=== PATIENT | female | born 1995 | race Caucasian/White ===

== ENCOUNTER 2016-08-23 15:30 | Emergency (ER) | payer BC, OTHER ==
[~2016-08-23] VITALS: Ht 160 cm; Wt 62.9 kg
[2016-08-23 15:37] VITALS: TEMP 37.9; Ht 160 cm; Wt 62.9 kg
[2016-08-23] MEDS ORDERED: SODIUM CHLORIDE 0.9% 1000ML 1,000 ML IV STA (15:52)
[2016-08-23] MEDS ORDERED: METR-163 PO (16:10)
[2016-08-23] MEDS ORDERED: DOXY100C76 PO (16:12)
[2016-08-23] MEDS ORDERED: ACYC-57 PO (16:13)
[2016-08-23 16:22] LABS: BASO % 0.3 %; BASO ABS # 0.03 K/uL (0-0.2); COMPLETE YES; EOS % 1.2 %; HEMATOCRIT 44.2 % (37-47); IG% 0.3 %; LYMPH % 33.7 %; MEAN CELL VOLUME 83.9 fL (80-100); MEAN CORPUSCULAR HEMOGLOBIN 26.4 pg (25-34); MEAN CORPUSCULAR HGB CONC 31.4 g/dl (32-36); MEAN PLATELET VOLUME 11.9 fL (7.4-10.4); MONO % 4.5 %; PLATELET COUNT 274 K/uL (130-400); RED BLOOD COUNT 5.27 M/uL (4.2-5.4); WHITE BLOOD COUNT 9.78 K/uL (4.8-10.8)
[2016-08-23 16:34] LABS: MANUAL MICROSCOPIC REQUIRED? NO; REVIEW REQ? NO; URINE APPEARANCE CLEAR (CLEAR); URINE BILIRUBIN NEG (NEG); URINE COLOR YELLOW; URINE NITRITE NEG (NEG); URINE PH 7.5 (4.5-7.5); URINE SPECIFIC GRAVITY 1.006 (1.000-1.030); UROBILINOGEN NEG (NEG); ZZUR CULT IF INDIC CLEAN CATCH NO
[2016-08-23 16:41] LABS: BUN/CREATININE RATIO 14.5 (10-20); CREATININE 0.84 mg/dl (0.60-1.20); POTASSIUM 3.5 mmol/L (3.5-5.1)
[2016-08-23 16:44] LABS: ALB/GLOB RATIO 1.1 (0.9-2)
[2016-08-23] MEDS ORDERED: OPTIRAY 320 IV PRN (17:00)
--- NOTE | 2016-08-23 17:20 | DIAGNOSTIC IMAGING REPORT ---
CT SCAN OF THE ABDOMEN AND PELVIS WITH IV CONTRAST CLINICAL HISTORY: Fever. Pelvic pain. COMPARISON STUDY: No priors. TECHNIQUE: Following the IV administration of 94 cc of Optiray 320, CT scan of the abdomen and pelvis is performed from the lung bases to the proximal femora. Images are reviewed in the axial, sagittal, and coronal planes. IV contrast was administered without complication. Automated dose control exposure was utilized. CT DOSE: 269.09 mGy.cm FINDINGS: Lung bases: The heart is normal in size and without pericardial effusion. The lung bases are clear. Liver: The contrast-enhanced liver is normal in size, contour, and attenuation. There is no intrahepatic biliary ductal dilatation. The hepatic veins and portal veins are patent. Gallbladder: Unremarkable. Spleen: Normal in size and attenuation. Pancreas: Unremarkable. Adrenal glands: Unremarkable. Kidneys: The contrast enhanced kidneys are normal in size and without hydronephrosis. The kidneys enhance symmetrically. There is a 2 mm nonobstructing calculus in the upper pole the left kidney. Abdominal vasculature: The abdominal aorta is normal in course and caliber. Bowel: The small bowel and colon are normal in course and caliber. The appendix is well-visualized and normal. Peritoneum: There is no intraperitoneal free air or abdominal ascites. There is a small fat-containing umbilical hernia. Lymphadenopathy: None. Pelvic viscera: The bladder, uterus, and adnexa are normal as visualized. Small bilateral ovarian follicles are identified. Skeletal structures: No lytic or blastic lesions are seen. IMPRESSION: 1. There are no acute infectious or inflammatory findings in the abdomen or pelvis. 2. Tiny nonobstructing left renal calculus. Electronically signed by: Ravinder Luna M.D. 08/23/2016 5:19 PM Dictated Date/Time: 08/23/2016 5:15 PM
--- NOTE | 2016-08-23 18:16 | DIAGNOSTIC IMAGING REPORT ---
ULTRASOUND OF THE PELVIS CLINICAL HISTORY: Pelvic pain. Fever. COMPARISON STUDY: Pelvic CT dated 08/23/2016. TECHNIQUE: Real-time, grayscale, and color flow sonography of the pelvis is performed transabdominally. The patient declined the endovaginal assessment. Images are reviewed in the transverse and longitudinal planes. FINDINGS: Uterus: The uterus is normal in size and echotexture, measuring 8.3 x 3.9 x 5.5 cm. Endometrium: The endometrium is normal in appearance, and the endometrial stripe is normal in thickness measuring up to 0.2 cm. Ovaries: The ovaries are normal in size and morphology. The right ovary measures 3.3 x 1.6 x 2.5 cm and the left ovary measures 2.7 x 1.9 x 2.5 cm. Small ovarian follicles are noted. Normal Doppler waveforms are shown within both ovaries. Pelvis: There is no free fluid in the cul-de-sac. No concerning adnexal lesion is seen. IMPRESSION: 1. Unremarkable transabdominal sonographic assessment of the pelvis. 2. The patient declined the endovaginal examination. Electronically signed by: Ravinder Luna M.D. 08/23/2016 6:15 PM Dictated Date/Time: 08/23/2016 6:14 PM
[2016-08-23] MEDS ORDERED: CEFTRIAXONE SOD INJ 1 GM ADDVIAL IV STA (18:36)
--- NOTE | 2016-08-23 18:45 | EMERGENCY ROOM VISIT NOTE ---
History First contact with patient: 15:42 Chief Complaint: PELVIC PAIN Stated Complaint: LOWER BACK PAIN, AB PAIN, DIZZINESS History of Present Illness The patient is a 20 year old female who presents to the Emergency Room with complaints of pelvic pain and fevers for the past 3 weeks. The patient states that she had a child 2.5 months ago. She has some pelvic pain after that and states that at her checkup, and they did a pelvic ultrasound which showed findings possibly consistent with retained products of conception. The patient states that after that, she developed pelvic pain with radiation into the back as well as low-grade fevers. She states the pain is sharp at times and dull at baseline. She rates the overall discomfort a 4/10. She has seen her primary care provider for this multiple times. They performed an ultrasound to 12 days ago which again showed possible retained products of conception. She saw them 3 days ago and at that time they placed her on doxycycline and Flagyl for possible pelvic inflammatory disease. She did not have pelvic cultures performed. She has not seen her LEGEND MAKER since her check. She states she typically sees [facility] in [place]. She denies any urinary symptoms, nausea, vomiting or changes in bowel movements. She denies any abnormal vaginal discharge. She states she has not been sexually active since the of her child. Review of Systems A complete 10 point review of systems was reviewed with the patient with pertinent positives and negatives as per history of present illness. All else were negative. Social History Smoking Status: Former Smoker Current/Historical Medications Scheduled Acyclovir (Zovirax), 200 MG PO DIRECTED Doxycycline Monohydrate (Monodox), 100 MG PO BID Metronidazole (Flagyl), 500 MG PO BID Allergies Coded Allergies: No Known Allergies (Unverified , 08/23/16) Physical Exam Vital Signs Date Time Temp Pulse Resp B/P Pulse Ox O2 Delivery O2 Flow Rate FiO2 08/23/16 19:19 87 18 110/69 97 08/23/16 18:29 78 16 101/72 98 Room Air 08/23/16 17:03 88 16 109/70 100 Room Air 08/23/16 15:37 37.9 100 16 121/79 98 Room Air Physical Exam VITALS: Vitals are noted on the nurse's note and reviewed by myself. Vital signs stable. GENERAL: This is a 20-year-old female, in no acute distress, nondiaphoretic, well-developed well-nourished. SKIN: Capillary reflex less than 2 seconds. HEART: Regular rate and rhythm without murmurs gallops or rubs. LUNGS: Clear to auscultation bilaterally without wheezes, rales or rhonchi. ABDOMEN: Positive bowel sounds x 4. Soft, mild tenderness over the suprapubic region. PELVIC: There is a small amount of whitish yellow vaginal discharge from the cervical os. There is a small amount of bleeding within the vaginal vault. There is mild cervical motion tenderness. No adnexal tenderness or masses. NEURO: Patient was alert and oriented to person place and time. Medical Decision & Procedures ER Provider Diagnostic Interpretation: CT SCAN OF THE ABDOMEN AND PELVIS WITH IV CONTRAST IMPRESSION: 1. There are no acute infectious or inflammatory findings in the abdomen or pelvis. 2. Tiny nonobstructing left renal calculus. ULTRASOUND OF THE PELVIS FINDINGS: Uterus: The uterus is normal in size and echotexture, measuring 8.3 x 3.9 x 5.5 cm. Endometrium: The endometrium is normal in appearance, and the endometrial stripe is normal in thickness measuring up to 0.2 cm. Ovaries: The ovaries are normal in size and morphology. The right ovary measures 3.3 x 1.6 x 2.5 cm and the left ovary measures 2.7 x 1.9 x 2.5 cm. Small ovarian follicles are noted. Normal Doppler waveforms are shown within both ovaries. Pelvis: There is no free fluid in the cul-de-sac. No concerning adnexal lesion is seen. IMPRESSION: 1. Unremarkable transabdominal sonographic assessment of the pelvis. 2. The patient declined the endovaginal examination. Laboratory Results 08/23/16 16:10 Red Blood Count 5.27, Mean Corpuscular Volume 83.9, Mean Corpuscular Hemoglobin 26.4, Mean Corpuscular Hemoglobin Concent 31.4, Mean Platelet Volume 11.9, Neutrophils (%) (Auto) 60.0, Lymphocytes (%) (Auto) 33.7, Monocytes (%) (Auto) 4.5, Eosinophils (%) (Auto) 1.2, Basophils (%) (Auto) 0.3, Neutrophils # (Auto) 5.86, Lymphocytes # (Auto) 3.30, Monocytes # (Auto) 0.44, Eosinophils # (Auto) 0.12, Basophils # (Auto) 0.03 08/23/16 16:10 Test 08/23/16 16:10 08/23/16 18:25 White Blood Count 9.78 K/uL (4.8-10.8) Red Blood Count 5.27 M/uL (4.2-5.4) Hemoglobin 13.9 g/dL (12.0-16.0) Hematocrit 44.2 % (37-47) Mean Corpuscular Volume 83.9 fL (80-100) Mean Corpuscular Hemoglobin 26.4 pg (25-34) Mean Corpuscular Hemoglobin Concent 31.4 g/dl (32-36) Platelet Count 274 K/uL (130-400) Mean Platelet Volume 11.9 fL (7.4-10.4) Neutrophils (%) (Auto) 60.0 % Lymphocytes (%) (Auto) 33.7 % Monocytes (%) (Auto) 4.5 % Eosinophils (%) (Auto) 1.2 % Basophils (%) (Auto) 0.3 % Neutrophils # (Auto) 5.86 K/uL (1.4-6.5) Lymphocytes # (Auto) 3.30 K/uL (1.2-3.4) Monocytes # (Auto) 0.44 K/uL (0.11-0.59) Eosinophils # (Auto) 0.12 K/uL (0-0.5) Basophils # (Auto) 0.03 K/uL (0-0.2) RDW Standard Deviation 43.8 fL (36.4-46.3) RDW Coefficient of Variation 14.3 % (11.5-14.5) Immature Granulocyte % (Auto) 0.3 % Immature Granulocyte # (Auto) 0.03 K/uL (0.00-0.02) Urine Color YELLOW Urine Appearance CLEAR (CLEAR) Urine pH 7.5 (4.5-7.5) Urine Specific [place] 1.006 (1.000-1.030) Urine Protein NEG (NEG) Urine Glucose (UA) NEG (NEG) Urine Ketones NEG (NEG) Urine Occult Blood NEG (NEG) Urine Nitrite NEG (NEG) Urine Bilirubin NEG (NEG) Urine Urobilinogen NEG (NEG) Urine Leukocyte Esterase SMALL (NEG) Urine WBC (Auto) 1-5 /hpf (0-5) Urine RBC (Auto) 0-4 /hpf (0-4) Urine Hyaline Casts (Auto) 0 /lpf (0-5) Urine Epithelial Cells (Auto) 5-10 /lpf (0-5) Urine Bacteria (Auto) NEG (NEG) Urine Test NEG (NEG) Anion Gap 5.0 mmol/L (3-11) Est Creatinine Clear Calc Drug Dose 96.2 ml/min Estimated GFR () 116.8 Estimated GFR (Non- 100.8 BUN/Creatinine Ratio 14.5 (10-20) Calcium Level 9.0 mg/dl (8.5-10.1) Total Bilirubin 0.2 mg/dl (0.2-1) Aspartate Amino Transf (AST/SGOT) 22 U/L (15-37) Alanine Aminotransferase (ALT/SGPT) 55 U/L (12-78) Alkaline Phosphatase 80 U/L (45-117) Total Protein 8.0 gm/dl (6.4-8.2) Albumin 4.1 gm/dl (3.4-5.0) Globulin 3.9 gm/dl (2.5-4.0) Albumin/Globulin Ratio 1.1 (0.9-2) Date/Time Source Procedure Growth Status 08/23/16 18:25 Vaginal Swab Trichomonas Preparation - Final Complete Medications Administered Medications (Trade) Dose Ordered Sig/Joslyn Route Start Time Stop Time Status Last Admin Dose Admin Sodium Chloride (Nss 1000ml) 1,000 ml @ 999 mls/hr Q1H1M STAT IV 08/23/16 15:52 08/23/16 16:52 DC 08/23/16 16:11 999 MLS/HR Ceftriaxone Sodium (Rocephin Inj) 1 gm NOW STAT IV 08/23/16 18:36 08/23/16 18:38 DC 08/23/16 18:43 1 GM ED Course The patient was evaluated as above. Labs were drawn and IV access was obtained. CT scan was performed and read by radiology as above. Patient was reevaluated and pelvic ultrasound was ordered at this time. Pelvic exam was performed. Patient was given 1 g Rocephin IV. [facility]. He feels the patient is safe to be discharged home. Discharge instructions were reviewed with the patient. The patient verbalized understanding of my assessment and treatment plan and was discharged home in good condition. Medical Decision Differential diagnosis includes PID, endometritis, ovarian cyst, ovarian torsion , retained products of conception, urinary tract infection, among others. The patient is a 20-year-old female who presents today complaining of pelvic pain and persistent fevers. Labs revealed no leukocytosis, anemia or concerning electrolyte abnormalities. Urinalysis was not suggestive of infection. Urine was negative. CT scan of the abdomen and pelvis was unremarkable. Pelvic ultrasound was obtained and did not show any evidence of retained products of conception. I did obtain the patient's records from [facility]. She has been on doxycycline and Flagyl for 3 days. She does have a low-grade fever here, but no leukocytosis or tachycardia. She is hemodynamically stable. She does have some cervical motion tenderness on exam and I feel she likely has PID. Pelvic exam was performed and cultures were obtained. I do feel she can continue on the doxycycline and Flagyl but will give her 1 g Rocephin here. I spoke with Dr. Kong of [facility], who feels the patient should be discharged to follow-up with her own LEGEND [facility]ER. She was encouraged to return here if she has worsening of his current condition or new/concerning symptoms. The patient's case was reviewed with Dr. Pillai, ED attending physician, who agreed with my assessment and treatment plan. Based on the patient's presentation and work up, I feel the patient is stable for outpatient treatment. The patient was educated to return to the emergency department for any worsening of their current condition or new/concerning symptoms. She will follow up with her LEGEND [facility]ER within 48 hours. Impression Primary Impression: PID (pelvic inflammatory disease) Departure Information Dispostion Home / Self-Care Condition GOOD Referrals No Doctor, Assigned (PCP) Patient Instructions [facility] Additional Instructions Continue the doxycycline and Flagyl as prescribed. For pain control, you can use the following myyx-kzk-suzqthi medicines (if >12 yo): - Regular strength (325mg/tab) Tylenol (acetaminophen) 2 tabs every 4-6 hours as needed. Do not exceed 12 tablets in a 24 hour period. Avoid taking more than 4 grams (4000 mg) of Tylenol per day. This includes any other sources of acetaminophen you may take on a regular basis. - Regular strength (200 mg/tab) Advil (ibuprofen) 1-2 tabs every 4-6 hours as needed. Do not exceed a dose of 3200 mg per day. Follow-up with your LEGEND [facility]ER within 48 hours. Return to the emergency department with any worsening or new/concerning symptoms.
[2016-08-23 19:19] VITALS: BP 110/69; PULSE 87; O2SAT 97
[2016-08-26 00:51] LABS: CHLAMYDIA TRACH RNA*** DETECTED (NOT DETECTED); GC (NEIS GONORRHOEAE)RNA** NOT DETECTED (NOT DETECTED)
--- NOTE | 2016-08-27 12:43 | Pharmacy Progress Note ---
ED Pharmacist Culture FollowUp Date of Service: August 27, 2016. Patient was seen in the ER on 08/23 w/ c/o pelvic pain and fevers x 3 weeks. [facility] and placed on Doxy 100mg PO BID x 14 days + Flagyl 500mg BID x 14 days. However due to persistent symptoms she presented to ED 3 days later. ED provider dx patient w/ PID, gave patient Rocephin 1 gm IV x 1 and discharged the patient w/ instructions to continue the Doxy and Flagyl as previously prescribed by Chitra. Today, the results of the Chlamydia trachomatis RNA screening resulted positive. Upon review of [facility] records, the patient did have a f/u appt with Chitra CLEMENTS (Debra Yoderdang) on 08/25, at which time the patient was reported to be improving. However that note also stated the patient c/o the Doxy making her sick and she was to stop taking it but continue the Flagyl. She had only taken the Doxy for ~ 5 days. This would not have been appropriate length of therapy for treatment of PID (14 days recommended). I contacted [facility] and spoke with HANNA Lane. Explained c trachomatis positive results and need for appropriate therapy. Lab results faxed to the office ([phone]) per RN's request. Chitra to f/u with patient to provide abx therapy and patient education/counseling.
--- NOTE | 2016-08-27 12:54 | Pharmacy Progress Note ---
ED Pharmacist Culture FollowUp Date of Service: August 27, 2016. Patient was seen in the ER on 08/21 for c/o burning on urination and pus. She was given Rocephin 250mg IM x 1 and Zithromax 1gm PO x 1 and discharged w/ Rx for Doxycycline 100mg PO BID x 10 days. Today the Neisseria gonorrhoeae RNA screen returned positive. She has been given appropriate therapy for this infection. I did contact the patient and discussed the test results with her over the phone. Advised her to be compliant with the Doxycycline Rx as missing a single dose increases one's risk of treatment failure. She states that her symptoms have resolved. Advised she complete the entire Doxy course. Advised patient to return for f/u if symptoms return shortly after completing the Doxy. Advised she avoid sex while taking Doxy and for 7 days after completing the Doxy Rx Advised that all sexual partners be tested and treated if they also test positive to avoid reinfection. Advised that she be retested for gonorrhoeae by her PCP in ~ 3 months to ensure she was successfully treated even if asymptomatic.
== END 2016-08-23 19:20 | disposition home or self-care (01) ==
LOC: C.EDB 15:32 → C.EDA 19:20
DX: N73.9 Female pelvic inflammatory disease, unspecified (principal); Z87.891 Personal history of nicotine dependence

== ENCOUNTER → 2016-11-17 | Outpatient (CLI) | payer BC, OTHER ==
[~2016-11-17] MED LIST: ACYC1CAP8 PO; DOXY100C76 PO; METR-163 PO
[2016-11-22 23:10] LABS: CHLAMYDIA TRACH RNA*** NOT DETECTED (NOT DETECTED); GC (NEIS GONORRHOEAE)RNA** NOT DETECTED (NOT DETECTED); TRICHOMONAS VAGINALIS RNA** NOT DETECTED (NOT DETECTED)
== END | disposition home or self-care (01) ==
LOC: C.LABSPEC 17:57
PROVIDERS: ATTEND Physician Assistant
DX: R10.2 Pelvic and perineal pain (principal)

== ENCOUNTER → 2016-11-30 | Outpatient (CLI) | payer BC, OTHER ==
[2016-11-30 15:24] LABS: BASO % 0.5 %; BASO ABS # 0.04 K/uL (0-0.2); COMPLETE YES; EOS % 3.6 %; HEMATOCRIT 41.9 % (37-47); IG% 0.1 %; LYMPH % 32.7 %; LYMPH ABS # 2.51 K/uL (1.2-3.4); MEAN CELL VOLUME 83.3 fL (80-100); MEAN CORPUSCULAR HGB CONC 33.7 g/dl (32-36); MEAN PLATELET VOLUME 12.6 fL (7.4-10.4); MONO % 6.8 %; NEUT % 56.3 %; PLATELET COUNT 231 K/uL (130-400); RED BLOOD COUNT 5.03 M/uL (4.2-5.4); WHITE BLOOD COUNT 7.68 K/uL (4.8-10.8)
[2016-11-30 15:55] LABS: ALT/SGPT 28 U/L (12-78); AST/SGOT 13 U/L (15-37); BLOOD UREA NITROGEN 8 mg/dl (7-18); BUN/CREATININE RATIO 11.1 (10-20); CALCIUM 9.1 mg/dl (8.5-10.1); CARBON DIOXIDE 26 mmol/L (21-32); CHLORIDE 108 mmol/L (98-107); CREATININE 0.69 mg/dl (0.60-1.20); GLUCOSE 78 mg/dl (70-99); POTASSIUM 3.5 mmol/L (3.5-5.1); SODIUM 140 mmol/L (136-145)
[2016-11-30 15:56] LABS: ALB/GLOB RATIO 1.1 (0.9-2); ALKALINE PHOSPHATASE 82 U/L (45-117)
== END | disposition home or self-care (01) ==
LOC: C.LAB1850 14:27
PROVIDERS: ATTEND Internal Medicine
DX: R10.13 Epigastric pain (principal); R10.11 Right upper quadrant pain

== ENCOUNTER → 2016-12-02 | Outpatient (CLI) | payer BC, OTHER ==
[2016-12-16 14:56] LABS: O&P SOURCE OTHER-STOOL
== END | disposition home or self-care (01) ==
LOC: C.LABSPEC 10:00
PROVIDERS: ATTEND Internal Medicine
DX: K52.9 Noninfective gastroenteritis and colitis, unspecified (principal); R10.11 Right upper quadrant pain; R10.13 Epigastric pain

== ENCOUNTER → 2016-12-03 | Outpatient (CLI) | payer BC, OTHER ==
--- NOTE | 2016-12-03 12:13 | DIAGNOSTIC IMAGING REPORT ---
ABDOMINAL ULTRASOUND, RIGHT UPPER QUADRANT HISTORY: Right upper quadrant abdominal pain. COMPARISON: CT of the abdomen and pelvis August 23, 2016. FINDINGS: Liver is sonographically normal. There is no biliary ductal dilatation. The common bile duct measures 3 mm in caliber. The pancreatic body is normal. The head and tail are obscured. There are no gallstones. The gallbladder is normal. No right hydronephrosis is present. IMPRESSION: No significant abnormality identified within the right upper quadrant. Electronically signed by: Edward Calloway M.D. 12/03/2016 12:11 PM Dictated Date/Time: 12/03/2016 12:10 PM
== END | disposition home or self-care (01) ==
LOC: C.ULTR 11:06
PROVIDERS: ATTEND Internal Medicine
DX: R10.11 Right upper quadrant pain (principal)

== ENCOUNTER 2016-12-08 18:12 | Emergency (ER) | payer BC, OTHER ==
[~2016-12-08] VITALS: Ht 160 cm; Wt 65.0 kg
[2016-12-08 18:24] VITALS: TEMP 37.2; Ht 160 cm; Wt 65.0 kg
[2016-12-08] MEDS ORDERED: SODIUM CHLORIDE 0.9% 1000ML 1,000 ML IV STA (19:26)
[2016-12-08] MEDS ORDERED: KETOROLAC TROMETHAMINE 30 MG/ML VIAL IV STA (19:26)
[2016-12-08] MEDS ORDERED: OPTIRAY 320 IV PRN (19:30)
[2016-12-08 20:07] LABS: BASO % 0.6 %; BASO ABS # 0.04 K/uL (0-0.2); COMPLETE YES; EOS % 3.2 %; HEMATOCRIT 42.1 % (37-47); IG% 0.3 %; LYMPH ABS # 2.07 K/uL (1.2-3.4); MEAN CELL VOLUME 83.7 fL (80-100); MEAN CORPUSCULAR HEMOGLOBIN 27.4 pg (25-34); MEAN CORPUSCULAR HGB CONC 32.8 g/dl (32-36); MEAN PLATELET VOLUME 12.7 fL (7.4-10.4); MONO % 11.7 %; NEUT % 52.2 %; PLATELET COUNT 177 K/uL (130-400); RED BLOOD COUNT 5.03 M/uL (4.2-5.4); WHITE BLOOD COUNT 6.47 K/uL (4.8-10.8)
[2016-12-08 20:15] LABS: URINE APPEARANCE CLEAR (CLEAR); URINE BILIRUBIN NEG (NEG); URINE COLOR YELLOW; URINE NITRITE NEG (NEG); UROBILINOGEN NEG (NEG); ZZUR CULT IF INDIC CLEAN CATCH NO
[2016-12-08 20:17] LABS: MANUAL MICROSCOPIC REQUIRED? NO; REVIEW REQ? NO
[2016-12-08 20:22] LABS: ALT/SGPT 21 U/L (12-78); BLOOD UREA NITROGEN 4 mg/dl (7-18); BUN/CREATININE RATIO 6.7 (10-20); CARBON DIOXIDE 25 mmol/L (21-32); CHLORIDE 108 mmol/L (98-107); CREATININE 0.61 mg/dl (0.60-1.20); GLUCOSE 79 mg/dl (70-99); POTASSIUM 3.9 mmol/L (3.5-5.1); SODIUM 140 mmol/L (136-145)
[2016-12-08 20:25] LABS: ALKALINE PHOSPHATASE 86 U/L (45-117); AST/SGOT 17 U/L (15-37)
--- NOTE | 2016-12-08 20:58 | DIAGNOSTIC IMAGING REPORT ---
ABD/PELVIS IV CONTRAST ONLY CLINICAL HISTORY: 21 years-old Female presenting with diffuse abd pain . TECHNIQUE: Multidetector CT of the abdomen and pelvis was performed after the administration of intravenous contrast. IV contrast: 114 mL of Optiray 320. A dose lowering technique was used consistent with the principles of ALARA (as low as reasonably achievable). COMPARISON: 08/23/2016. CT DOSE (mGy.cm): The estimated cumulative dose is 271.73 mGy.cm. 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 Lung bases: Lung bases clear. No pericardial or pleural effusion. Liver: Normal morphology. Perfusional variation noted along the fissure for the ligamentum teres. No liver lesion. Patent hepatic vasculature. Biliary: No intrahepatic or extrahepatic biliary ductal dilatation. Normal gallbladder. Pancreas: Normal. Spleen: Normal. Adrenal glands: Normal. Kidneys and ureters: Nonobstructing 1 to 2 mm calculus at the upper pole the left kidney (series 3 image 122), unchanged from prior. No additional renal calculus is evident. Normal enhancement of the renal parenchyma. No hydronephrosis. Ureters normal. Bladder: Normal. Pelvic organs: Uterus and ovaries normal. Follicles noted in the bilateral ovaries, most prominently on the right with a follicle measuring 1.5 cm. Bowel: Normal appendix. No bowel obstruction. Mild antral wall thickening, nonspecific. No perigastric inflammatory change. Peritoneal cavity: No free fluid or intraperitoneal gas. Vasculature: Aorta and IVC patent and normal in caliber. Lymph nodes: Few prominent right common iliac lymph nodes measuring up to 6 mm in the short axis, nonspecific. Additional mildly prominent retroperitoneal lymph nodes measuring up to 7 mm in the short axis. These may be reactive. Abdominal wall: Small fat-containing umbilical hernia. Musculoskeletal: Normal. IMPRESSION: 1. Nonobstructing 1-2 mm left renal calculus. 2. No convincing evidence of acute intra-abdominal pathology. Electronically signed by: Ton Carroll M.D. 12/08/2016 8:56 PM Dictated Date/Time: 12/08/2016 8:48 PM
[2016-12-08 21:15] VITALS: BP 110/69; PULSE 93; O2SAT 96
--- NOTE | 2016-12-09 01:00 | EMERGENCY ROOM VISIT NOTE ---
History Report prepared by Daxa: Ronit Smith Under the Supervision of: Dr. Cruz Lucero D.O. First contact with patient: 19:16 Chief Complaint: PELVIC PAIN Stated Complaint: PELVIC PAIN, ABD PAIN, NAUSEA, HEADACHE History of Present Illness The patient is a 21 year old female who presents to the Emergency Room with complaints of persistent pelvic pain starting 6 months ago. The patient has been having this pain since having her child 6 months ago. She has followed with her PCP and [employer] Of [employer] and has had tests which have not revealed anything. She was at her [employer] Of Communications today and had a pelvic exam and transvaginal US. The patient notes that DYE CAN OPERATOR said that the exam was unremarkable in the ocean was normal. The pain was not severe when she went in, but worsened after she left. She has a sharp stabbing pain which feels like contractions in her pelvic area and in her abdomen she has a cramping pain. The pain is constant and seems to worsen randomly. She has been told to take Tylenol and ibuprofen which does not relieve her pain. She does not identify anything that improves or worsens her pain. She denies any cough or dysuria. Her last BM was last night and normal. Her last menstrual period was in July. She is on depo. She had a liver ultrasound 5 days ago which was normal. She also had a pelvic CT back in August. She works in the kitchen at a restaurant. Source of History: patient Onset: 6 months ago Position: other (pelvic) Quality: sharp, stabbing Timing: other (persistent) Associated Symptoms: + abdominal pain, No cough, No urinary symptoms Note: Pt denies changes in bowel movement. Review of Systems See HPI for pertinent positives & negatives. A total of 10 systems reviewed and were otherwise negative. Past Medical & Surgical Medical Problems: (1) PID (pelvic inflammatory disease) Family History FH: cancer Hypertension Social History Smoking Status: Former Smoker Housing Status: lives with family Occupation Status: employed Current/Historical Medications Scheduled Acyclovir (Zovirax), 200 MG PO DIRECTED Doxycycline Monohydrate (Monodox), 100 MG PO BID Metronidazole (Flagyl), 500 MG PO BID Allergies Coded Allergies: No Known Allergies (Unverified , 08/23/16) Physical Exam Vital Signs Date Time Temp Pulse Resp B/P (MAP) Pulse Ox O2 Delivery O2 Flow Rate FiO2 12/08/16 21:15 93 17 110/69 96 Room Air 12/08/16 18:24 37.2 96 16 116/75 99 Physical Exam GENERAL: sitting up in bed, alert, well appearing, well nourished, no distress, non-toxic EYE EXAM: normal conjunctiva OROPHARYNX: no exudate, no erythema, lips, buccal mucosa, and tongue normal and mucous membranes are moist NECK: supple, no nuchal rigidity, no adenopathy, non-tender LUNGS: Clear to auscultation. Normal chest wall mechanics HEART: no murmurs, S1 normal and S2 normal ABDOMEN: abdomen soft, minimal diffuse tenderness, normo-active bowel sounds, no masses, no rebound or guarding. PELVIC: declined BACK: Back is symmetrical on inspection and there is no deformity, no midline tenderness, no CVA tenderness. SKIN: no rashes and no bruising UPPER EXTREMITIES: upper extremities are grossly normal. LOWER EXTREMITIES: No pitting edema. NEURO EXAM: Normal sensorium, cranial nerves II-XII grossly intact, normal speech, no gross weakness of arms, no gross weakness of legs. Medical Decision & Procedures ER Provider Diagnostic Interpretation: Radiology results as stated below per my review and the radiologist's interpretation: ABD/PELVIS IV CONTRAST ONLY CLINICAL HISTORY: 21 years-old Female presenting with diffuse abd pain . TECHNIQUE: Multidetector CT of the abdomen and pelvis was performed after the administration of intravenous contrast. IV contrast: 114 mL of Optiray 320. A dose lowering technique was used consistent with the principles of ALARA (as low as reasonably achievable). COMPARISON: 08/23/2016. CT DOSE (mGy.cm): The estimated cumulative dose is 271.73 mGy.cm. FINDINGS: Quantitative Analyst topogram: Unremarkable. Lung bases: Lung bases clear. No pericardial or pleural effusion. Liver: Normal morphology. Perfusional variation noted along the fissure for the ligamentum teres. No liver lesion. Patent hepatic vasculature. Biliary: No intrahepatic or extrahepatic biliary ductal dilatation. Normal gallbladder. Pancreas: Normal. Spleen: Normal. Adrenal glands: Normal. Kidneys and ureters: Nonobstructing 1 to 2 mm calculus at the upper pole the left kidney (series 3 image 122), unchanged from prior. No additional renal calculus is evident. Normal enhancement of the renal parenchyma. No hydronephrosis. Ureters normal. Bladder: Normal. Pelvic organs: Uterus and ovaries normal. Follicles noted in the bilateral ovaries, most prominently on the right with a follicle measuring 1.5 cm. Bowel: Normal appendix. No bowel obstruction. Mild antral wall thickening, nonspecific. No perigastric inflammatory change. Peritoneal cavity: No free fluid or intraperitoneal gas. Vasculature: Aorta and IVC patent and normal in caliber. Lymph nodes: Few prominent right common iliac lymph nodes measuring up to 6 mm in the short axis, nonspecific. Additional mildly prominent retroperitoneal lymph nodes measuring up to 7 mm in the short axis. These may be reactive. Abdominal wall: Small fat-containing umbilical hernia. Musculoskeletal: Normal. IMPRESSION: 1. Nonobstructing 1-2 mm left renal calculus. 2. No convincing evidence of acute intra-abdominal pathology. Electronically signed by: Ton Carroll M.D. 12/08/2016 8:56 PM Dictated Date/Time: 12/08/2016 8:48 PM Laboratory Results 12/08/16 19:40 Red Blood Count 5.03, Mean Corpuscular Volume 83.7, Mean Corpuscular Hemoglobin 27.4, Mean Corpuscular Hemoglobin Concent 32.8, Mean Platelet Volume 12.7, Neutrophils (%) (Auto) 52.2, Lymphocytes (%) (Auto) 32.0, Monocytes (%) (Auto) 11.7, Eosinophils (%) (Auto) 3.2, Basophils (%) (Auto) 0.6, Neutrophils # (Auto ) 3.37, Lymphocytes # (Auto) 2.07, Monocytes # (Auto) 0.76, Eosinophils # (Auto ) 0.21, Basophils # (Auto) 0.04 12/08/16 19:40 Test 12/08/16 19:40 White Blood Count 6.47 K/uL (4.8-10.8) Red Blood Count 5.03 M/uL (4.2-5.4) Hemoglobin 13.8 g/dL (12.0-16.0) Hematocrit 42.1 % (37-47) Mean Corpuscular Volume 83.7 fL (80-100) Mean Corpuscular Hemoglobin 27.4 pg (25-34) Mean Corpuscular Hemoglobin Concent 32.8 g/dl (32-36) Platelet Count 177 K/uL (130-400) Mean Platelet Volume 12.7 fL (7.4-10.4) Neutrophils (%) (Auto) 52.2 % Lymphocytes (%) (Auto) 32.0 % Monocytes (%) (Auto) 11.7 % Eosinophils (%) (Auto) 3.2 % Basophils (%) (Auto) 0.6 % Neutrophils # (Auto) 3.37 K/uL (1.4-6.5) Lymphocytes # (Auto) 2.07 K/uL (1.2-3.4) Monocytes # (Auto) 0.76 K/uL (0.11-0.59) Eosinophils # (Auto) 0.21 K/uL (0-0.5) Basophils # (Auto) 0.04 K/uL (0-0.2) RDW Standard Deviation 42.8 fL (36.4-46.3) RDW Coefficient of Variation 13.8 % (11.5-14.5) Immature Granulocyte % (Auto) 0.3 % Immature Granulocyte # (Auto) 0.02 K/uL (0.00-0.02) Urine Color YELLOW Urine Appearance CLEAR (CLEAR) Urine pH 7.0 (4.5-7.5) Urine Specific [place] 1.010 (1.000-1.030) Urine Protein NEG (NEG) Urine Glucose (UA) NEG (NEG) Urine Ketones NEG (NEG) Urine Occult Blood NEG (NEG) Urine Nitrite NEG (NEG) Urine Bilirubin NEG (NEG) Urine Urobilinogen NEG (NEG) Urine Leukocyte Esterase NEG (NEG) Urine WBC (Auto) 1-5 /hpf (0-5) Urine RBC (Auto) 0-4 /hpf (0-4) Urine Hyaline Casts (Auto) 0 /lpf (0-5) Urine Epithelial Cells (Auto) 5-10 /lpf (0-5) Urine Bacteria (Auto) NEG (NEG) Urine Test NEG (NEG) Anion Gap 7.0 mmol/L (3-11) Est Creatinine Clear Calc Drug Dose 133.4 ml/min Estimated GFR () > 150.0 Estimated GFR (Non- 130.5 BUN/Creatinine Ratio 6.7 (10-20) Calcium Level 9.0 mg/dl (8.5-10.1) Total Bilirubin 0.3 mg/dl (0.2-1) Direct Bilirubin < 0.1 mg/dl (0-0.2) Aspartate Amino Transf (AST/SGOT) 17 U/L (15-37) Alanine Aminotransferase (ALT/SGPT) 21 U/L (12-78) Alkaline Phosphatase 86 U/L (45-117) Total Protein 7.8 gm/dl (6.4-8.2) Albumin 3.9 gm/dl (3.4-5.0) Lipase 198 U/L (73-393) Laboratory results per my review. Medications Administered Medications (Trade) Dose Ordered Sig/Joslyn Route Start Time Stop Time Status Last Admin Dose Admin Sodium Chloride 1,000 ml @ 999 mls/hr Q1H1M STAT IV 12/08/16 19:26 12/08/16 20:26 DC 12/08/16 20:01 999 MLS/HR Ketorolac Tromethamine (Toradol Inj) 30 mg NOW STAT IV 12/08/16 19:26 12/08/16 19:27 DC 12/08/16 20:01 30 MG ED Course ED COURSE: Vital signs were reviewed and showed normal vitals. The patients medical record was reviewed The above diagnostic studies were performed and reviewed. ED treatments and interventions as stated above. 1917: The patient was evaluated in room C10. A complete history and physical examination was performed. 1925: Toradol Inj 30 mg IV, NSS 1000 ml @ 999 mls/hr IV. 2109: Upon reevaluation, the patient is resting comfortably. She declines pelvic exam. I discussed my findings with the patient and she understands and agrees with the treatment plan. Based on the patients age, coexisting illnesses, exam and lab findings the decision to treat as an outpatient was made. The patient remained stable while under my care. The patient appeared well at the time of discharge. Medical Decision Differential diagnoses includes but is not limited to gastritis, peptic ulcer disease, GERD, gallbladder disease, pancreatitis, small bowel obstruction, acute coronary syndrome, pericarditis, ischemic bowel, irritable bowel disease, irritable bowel syndrome, appendicitis, diverticulitis, malignancy, hernia, urinary tract infection, torsion, /ectopic , perforation, trauma, infectious. Patient is a 21-year-old female who presents to ER for diffuse abdominal pain which has been present since this past August. She notes it has been present since she gave . She has no complaints. She has been followed with a [facility] [place] and [employer]INE OPERATOR and is now being followed [facility] CAPPER MACHINE OPERATOR. She has had previous ultrasounds and CT several months ago which was negative. She had an ultrasound today and examine by CAPPER MACHINE OPERATOR which per the Pts report was negative. I did not have access to his radiation. Patient denies any vaginal bleeding or vaginal discharge. Labs including CBC, BMP, LFTs, and urine are unremarkable. test is negative. CT of abdomen and pelvis is negative. Patient was attempted at bedside. She declined pelvic. She is discharged follow-up with PCP/gynecology. He did improve slightly with Toradol. Discussed with Pt concerning signs and symptoms to watch out for. Pt was instructed to follow up with their PCP and discussed with the patient their option to return to the ED at anytime for persistent or worsening symptoms. The appropriate anticipatory guidance and out-patient management, including indications for return to the emergency department, were explained at length to the patient and understood. Medication Reconcilliation Current Medication List: was personally reviewed by me Blood Pressure Screening Patient's blood pressure: Normal blood pressure Blood pressure disposition: Did not require urgent referral Impression Primary Impression: Diffuse abdominal pain Scribe Attestation The scribe's documentation has been prepared under my direction and personally reviewed by me in its entirety. I confirm that the note above accurately reflects all work, treatment, procedures, and medical decision making performed by me. Departure Information Dispostion Home / Self-Care Referrals Lukas Martinez M.D. (PCP) Forms HOME CARE DOCUMENTATION FORM, IMPORTANT VISIT INFORMATION, WORK / SCHOOL INSTRUCTIONS Patient Instructions Abdominal Pain - [facility], My [facility] Additional Instructions Please follow up with your primary care doctor or if you are a student, [facility] with in the next 24 hours. Any worsening of your symptoms, please return to the ED immediately. This includes any fevers greater than 100.4, worsening pain, chest pain, shortness breath, persistent nausea, vomiting, unable to eat or drink, or any other concerning signs or symptoms from your standpoint. Please take motion or Tylenol as needed for pain. Please follow up with DYE CAN OPERATOR.
== END 2016-12-08 21:22 | disposition home or self-care (01) ==
LOC: C.EDB 18:13 → C.EDC 21:22
DX: R10.9 Unspecified abdominal pain (principal); N73.9 Female pelvic inflammatory disease, unspecified; Z82.49 Family history of ischemic heart disease and other diseases of the circulatory system; Z87.891 Personal history of nicotine dependence

== ENCOUNTER → 2016-12-08 | Outpatient (CLI) | payer BC, OTHER ==
[2016-12-08 14:46] LABS: URINE APPEARANCE CLEAR (CLEAR); URINE BILIRUBIN NEG (NEG); URINE COLOR YELLOW; URINE NITRITE NEG (NEG); URINE SPECIFIC GRAVITY 1.006 (1.000-1.030); UROBILINOGEN NEG (NEG)
[2016-12-08 14:47] LABS: MANUAL MICROSCOPIC REQUIRED? NO; REVIEW REQ? NO
== END | disposition home or self-care (01) ==
LOC: C.LAB1850 12:34
PROVIDERS: ATTEND Obstetrics & Gynecology
DX: R10.2 Pelvic and perineal pain (principal)

== ENCOUNTER → 2017-03-15 | Outpatient (CLI) | payer BC, OTHER ==
[~2017-03-15] MED LIST changes: +ACYC-57 PO; -ACYC1CAP8 PO
[2017-03-15 12:57] LABS: BASO % 0.3 %; BASO ABS # 0.03 K/uL (0-0.2); COMPLETE YES; EOS % 1.3 %; IG% 0.3 %; LYMPH % 21.7 %; LYMPH ABS # 2.43 K/uL (1.2-3.4); MEAN CELL VOLUME 85.8 fL (80-100); MEAN CORPUSCULAR HEMOGLOBIN 27.8 pg (25-34); MEAN CORPUSCULAR HGB CONC 32.4 g/dl (32-36); MEAN PLATELET VOLUME 12.8 fL (7.4-10.4); MONO % 6.4 %; PLATELET COUNT 203 K/uL (130-400); RED BLOOD COUNT 4.78 M/uL (4.2-5.4); WHITE BLOOD COUNT 11.18 K/uL (4.8-10.8)
[2017-03-15 13:27] LABS: ALT/SGPT 19 U/L (12-78); BLOOD UREA NITROGEN 8 mg/dl (7-18); BUN/CREATININE RATIO 11.5 (10-20); CARBON DIOXIDE 25 mmol/L (21-32); CHLORIDE 106 mmol/L (98-107); CREATININE 0.73 mg/dl (0.60-1.20); GLUCOSE 72 mg/dl (70-99); LYME DISEASE AB IGG NEG (NEG); POTASSIUM 3.4 mmol/L (3.5-5.1); SODIUM 139 mmol/L (136-145)
[2017-03-15 13:28] LABS: LYME DISEASE AB IGM EQUIVOCAL (NEG)
[2017-03-15 13:44] LABS: ALKALINE PHOSPHATASE 80 U/L (45-117); AST/SGOT 16 U/L (15-37)
== END | disposition home or self-care (01) ==
LOC: C.LABMFLN 09:50
PROVIDERS: ATTEND Physician Assistant
DX: G43.909 Migraine, unspecified, not intractable, without status migrainosus (principal)